=== PATIENT | male | born 1935 | race Hispanic/Latino ===

== ENCOUNTER 2019-08-06 12:54 | Emergency (ER) | payer MEDICARE, OTHER ==
[~2019-08-06] VITALS: Ht 162.6 cm; Wt 63.5 kg
[2019-08-06 15:02] LABS: BILIRUBIN,URINE NEGATIVE (NEGATIVE); CLARITY,URINE SL CLOUDY (CLEAR); COLOR,URINE YELLOW (YELLOW); KETONES,URINE NEGATIVE (NEGATIVE); LEUKOCYTE ESTERASE ,URINE NEGATIVE (NEGATIVE); NITRITE,URINE NEGATIVE (NEGATIVE); PROTEIN,URINE DIPSTICK NEGATIVE (NEGATIVE); URINE UROBILINOGEN 0.2 mg/dL (0.2 - 1)
[2019-08-06 15:13] LABS: RBC,URINE 0-5 /HPF (0-5); WBC,URINE (MAN) 0-5 /HPF (0-5)
[2019-08-06 15:14] LABS: BACTERIA,URINE FEW /HPF; EPITHELIAL CELLS,URINE MODERATE /LPF; MUCUS,URINE FEW (RARE)
--- NOTE | 2019-08-06 15:16 | Diagnostic Imaging Report ---
CT BRAIN WO HISTORY: Fall COMPARISON: None. Technique: Noncontrast axial scans were obtained from skull base to the vertex. Coronal and sagittal reconstructions obtained from the axial data. One or more of the following dose reduction techniques were used: Automated exposure control, adjustment of the mA and/or kV according to patient size, and/or utilization of iterative reconstruction technique. DISCUSSION: Scalp/Skull: Unremarkable. Brain sulci: Mildly prominent. Ventricles: Compensatory dilatation. Extra-axial spaces: No masses or fluid collections. Carotid siphon calcifications are present. Parenchyma: Mild bilateral deep white matter hypodensity is likely chronic microvascular ischemic change. Otherwise, no masses, hemorrhage, or large vascular territory acute infarct. Dural sinuses: No abnormal densities. Sellar/Suprasellar region: Intact. Skull base: Intact. Incidental findings: Bilateral ocular lens replacement. Minimal right maxillary and left sphenoid sinus mucosal thickening. IMPRESSION: 1. No acute intracranial abnormalities. 2. Mild supratentorial chronic microvascular ischemic change. Mild generalized cerebral volume loss. Signed by: Dr. Jn Jroge M.D. on 08/06/2019 3:12 PM
--- NOTE | 2019-08-06 15:24 | Diagnostic Imaging Report ---
CT CERVICAL SPINE WO HISTORY: Fall COMPARISON: Concurrent head CT; report from neck CT dated 01/25/2010 TECHNIQUE: CT of the cervical spine without contrast. Sagittal and coronal reformations were created. One or more of the following dose reduction techniques were used: Automated exposure control, adjustment of the mA and/or kV according to patient size, and/or utilization of iterative reconstruction technique. FINDINGS: Cervical lordosis is straightened. There is no scoliosis or subluxation. No fractures, compression deformity, or destructive osseous lesions are seen. The craniocervical junction is intact. No gross spinal canal masses are seen. The paravertebral and paraspinal soft tissues are unremarkable. Mild to moderate multilevel spondylosis is present. There is at least mild degenerative canal stenosis from C3-C4 to C5-C6 due to posterior disc osteophyte complexes. Moderate right C5-C6 foraminal stenosis is due to uncovertebral and facet arthrosis. Mild atlantoaxial arthrosis is present as well. Approximately 2 cm midline soft tissue mass along the thyrohyoid membrane may be a thyroglossal duct cyst. IMPRESSION: 1. No acute osseous abnormalities. 2. Mild to moderate multilevel spondylosis. 3. Incidental 2 cm midline soft tissue mass along the thyrohyoid membrane may be a complex thyroglossal duct cyst. Further evaluation with nonemergent neck/thyroid ultrasound is recommended. Signed by: Dr. Jn Jorge M.D. on 08/06/2019 3:21 PM
--- NOTE | 2019-08-06 15:31 | Diagnostic Imaging Report ---
EXAMINATION: CHEST 2 VIEWS INDICATION: Trauma COMPARISON: None FINDINGS: LINES/TUBES:None LUNGS:The lungs are well-inflated. No focal consolidation or pulmonary edema. PLEURA:No pleural effusion or pneumothorax. MEDIASTINUM:The cardiomediastinal silhouette appears normal in size and shape. BONES/SOFT TISSUES:No acute osseous injury. ABDOMEN:No free air under the diaphragm. IMPRESSION: No radiographic evidence of acute traumatic injury to the thorax. Clear lungs. Signed by: Sima Saunders MD on 08/06/2019 3:28 PM
--- NOTE | 2019-08-06 15:32 | Diagnostic Imaging Report ---
EXAMINATION: FOREARM RIGHT 2 VIEW INDICATION: Trauma COMPARISON: None FINDINGS: No acute fracture or dislocation. Alignment appears anatomic. No elbow joint effusion. Soft tissues appear unremarkable. Scattered arterial vascular calcifications. IMPRESSION: No acute osseous injury. Signed by: Sima Saunders MD on 08/06/2019 3:29 PM
--- NOTE | 2019-08-06 15:42 | Diagnostic Imaging Report ---
EXAM: CT Abdomen and Pelvis WITHOUT intravenous contrast INDICATION: Trauma COMPARISON: None. TECHNIQUE: Abdomen and pelvis were scanned utilizing a multidetector helical scanner from the lung base to the pubic symphysis without administration of IV contrast. Coronal and sagittal reformations were obtained. IV CONTRAST: None ORAL CONTRAST: None COMPLICATIONS: None RADIATION DOSE: Total DLP: 193.3 mGy*cm Dose modulation, iterative reconstruction, and/or weight based adjustment of the mA/kV was utilized to reduce the radiation dose to as low as reasonably achievable. FINDINGS: LOWER THORAX: Mild bibasilar dependent subsegmental atelectasis. HEPATOBILIARY: No evidence of acute traumatic injury to the liver. No focal hepatic lesions. The gallbladder is mildly distended and contains a 2.1 cm partially calcified gallstone at the neck. SPLEEN: No evidence of acute traumatic injury to the spleen. No splenomegaly. PANCREAS: No focal masses or ductal dilatation. ADRENALS: No adrenal nodules. KIDNEYS/URETERS: No hydronephrosis, stones, or solid mass lesions. PELVIC ORGANS/BLADDER: Prostatomegaly to 6.2 cm. PERITONEUM / RETROPERITONEUM: No free air or fluid. LYMPH NODES: No lymphadenopathy. VESSELS: Scattered atherosclerotic calcifications of the nonaneurysmal abdominal aorta and major branches. GI TRACT: No abnormal bowel wall thickening. No bowel obstruction. Normal appendix. BONES AND SOFT TISSUES: No acute osseous injury. No suspicious lytic or blastic lesions. Mild degenerative changes of the visualized spine. IMPRESSION: No evidence of acute traumatic injury to that or pelvis. Cholelithiasis (2.1 cm partially calcified gallstone at the gallbladder neck) without CT evidence of cholecystitis. Prostatomegaly. Signed by: Sima Saunders MD on 08/06/2019 3:39 PM
[2019-08-06] MEDS ORDERED: LIDOCAINE 1% W/EPINEPHRINE 20 ML VIAL INJ ONE (16:00)
[2019-08-06] MEDS ORDERED: TETANUS/DIPHTHERIA TOX ADULT 0.5 ML SYR IM ONE (16:00)
[2019-08-06] MEDS ORDERED: BACITRACIN ZINC 0.9GM TP ONE (16:15)
[2019-08-06 16:17] VITALS: BP 154/68
== END 2019-08-06 16:27 | disposition home or self-care (01) ==
LOC: ER 12:54
DX: S51.811A Laceration without foreign body of right forearm, initial encounter (principal); S50.11XA Contusion of right forearm, initial encounter; S00.83XA Contusion of other part of head, initial encounter; M54.2 Cervicalgia; S20.219A Contusion of unspecified front wall of thorax, initial encounter; W11.XXXA Fall on and from ladder, initial encounter; Y92.008 Other place in unspecified non-institutional (private) residence as the place of occurrence of the external cause
CPT/HCPCS: 70450; 71046; 72125; 74176; 81001; 90471; 90714; 99283